=== PATIENT | male | born 1955 | race Caucasian/White ===

== ENCOUNTER 2021-03-18 09:51 | Emergency (ER) | payer MEDICAID ==
[~2021-03-18] VITALS: Ht 172.7 cm; Wt 88.8 kg
--- NOTE | 2021-03-18 10:25 | NUR ---
patient to room from lobby
--- NOTE | 2021-03-18 11:32 | NUR ---
PT CAME IN [place] WHITE AND DIZZINESS. PT REPORTS HE LIVES IN [place] AND HAS BEEN COMING TO [place] FOR WORK AND THINKS THE SMOKE IS AFFECTING HIM.
[2021-03-18 11:37] LABS: BASOPHILS % (AUTO) 1 % (0-1); EOSINOPHILS % (AUTO) 2 % (1-7); LYMPHOCYTES % (AUTO) 33 % (22-44); MEAN CORPUSCULAR HGB CONC 34.4 g/dL (33.2-36.2); MEAN PLATELET VOLUME 6.8 fL (7.4-10.4); MONOCYTES % (AUTO) 6 % (2-9); NEUTROPHILS % (AUTO) 57 % (42-75); PLATELET COUNT 240 x10^3/uL (130-400); RED BLOOD COUNT 4.79 x10^6/uL (4.38-5.82); RED CELL DISTRIBUTION WIDTH 13.1 % (9.4-14.8)
[2021-03-18 11:44] LABS: ALBUMIN 3.5 g/dL (3.4-5.0); ANION GAP 6 mmol/L (5-15); CALCIUM 8.9 mg/dL (8.5-10.1); CHLORIDE 113 mmol/L (98-107)
[2021-03-18 11:45] LABS: CREATININE 0.81 mg/dL (0.7-1.3)
[2021-03-18 12:01] VITALS: BP 110/73
--- NOTE | 2021-03-18 12:33 | NUR ---
dr carias spoke with dr fishman
== END 2021-03-18 12:54 | disposition home or self-care (01) ==
LOC: ED 11:01
DX: H91.8X3 Other specified hearing loss, bilateral (principal); R42 Dizziness and giddiness; F17.200 Nicotine dependence, unspecified, uncomplicated
CPT/HCPCS: 36415; 70450; 80048; 82040; 85025; 93005; 99285